=== PATIENT | male | born 1960 | race Caucasian/White ===

== ENCOUNTER 2024-02-05 05:06 | Inpatient (IN) | payer MEDICAID ==
[~2024-02-05] VITALS: Ht 172.7 cm; Wt 92.3 kg
[2024-02-05] VITALS (18 sets, daily range): BP systolic 89–135; BP diastolic 48–79; PULSE 66–96; RESP 14–18; TEMP 97.6–98.2; O2SAT 92–100
[2024-02-05] MEDS ORDERED: iohexol 300mg/ml 100ml inj. ONE (06:05)
[2024-02-05 06:40] LABS: BASOPHILS % (AUTO) 0.5 % (0-1); EOSINOPHILS # (AUTO) 0.1 X10'3 (0-0.9); EOSINOPHILS % (AUTO) 1.3 % (0-6); HEMOGLOBIN 15.7 g/dl (14.0-17.9); LYMPHOCYTES # (AUTO) 1.6 X10'3 (1.1-4.8); LYMPHOCYTES % (AUTO) 15.5 % (21-51); MEAN CORPUSCULAR HEMOGLOBIN 30.6 PG (27.0-31.0); MEAN CORPUSCULAR HGB CONC 33.5 g/dL (33.0-36.5); MEAN CORPUSCULAR VOLUME 91.4 FL (78-98); MEAN PLATELET VOLUME 8.3 FL (7.4-10.4); MONOCYTES # (AUTO) 0.6 X10'3 (0-0.9); MONOCYTES % (AUTO) 5.5 % (2-12); NEUTROPHILS # (AUTO) 8.2 X10'3 (1.8-7.7); NEUTROPHILS % (AUTO) 77.2 % (42-75); PLATELET COUNT 199 X10'3 (140-440); RED BLOOD COUNT 5.14 X10'6 (4.70-6.10); RED CELL DISTRIBUTION WIDTH 13.6 % (11.5-14.5); WHITE BLOOD COUNT 10.6 X10'3 (4.5-11.0)
[2024-02-05 06:44] LABS: ALANINE AMINOTRANSFERASE 21 U/L (12-78); ALBUMIN 4.1 G/DL (3.4-5.0); ALBUMIN/GLOBULIN RATIO 1.2 (1.1-1.5); ALKALINE PHOSPHATASE 57 IU/L (46-116); AMYLASE 38 U/L (25-115); ANION GAP 11 (8-16); ASPARTATE AMINO TRANSFERASE 21 U/L (10-37); BILIRUBIN,DIRECT 0.2 MG/DL (0-0.3); BILIRUBIN,TOTAL 0.9 MG/DL (0.1-1.0); BLOOD UREA NITROGEN 29 MG/DL (7-18); BUN/CREATININE RATIO 25.4 (10.0-20.0); CALCIUM 9.4 MG/DL (8.5-10.1); CHLORIDE 105 MMOL/L (99-107); CREATININE 1.14 MG/DL (0.60-1.10); GLUCOSE 157 MG/DL (70-104); LIPASE 38 U/L (16-77); SODIUM 144 MMOL/L (135-145); TOTAL CARBON DIOXIDE 27.7 MMOL/L (24-32); TOTAL PROTEIN 7.5 G/DL (6.4-8.2); eCRCL 63 ML/MIN; eGFR 64 ML/MIN
[2024-02-05] MEDS: normal saline 1000ml 1,000 ML IV ONE (07:23)
--- NOTE | 2024-02-05 07:24 | NUR ---
CALLED DR. RIVERA PER DR. TATUM
[2024-02-05] MEDS: ondansetron/PF 4mg/2ml inj IV ONE (07:44)
[2024-02-05] MEDS: ketorolac trometh 30MG/ML vial 30 MG/ML VIAL IV ONE (07:50)
[2024-02-05] MEDS ORDERED: magnesium sulf-water 4G/100mL 100 ML IV PRN (08:10)
[2024-02-05] MEDS ORDERED: acetaminophen 325mg tablet PO PRN (08:10)
[2024-02-05] MEDS ORDERED: magnesium Cl slow-release 64mg tablet PO PRN (08:10)
[2024-02-05] MEDS ORDERED: mag hydrox/Alum hydrox/simeth 30ml oral suspension PO PRN (08:10)
[2024-02-05] MEDS ORDERED: potassium Cl 20 mEq SR tablet PO PRN ×2 (08:10)
[2024-02-05] MEDS ORDERED: magnesium hydroxide 30ml (MOM) UD suspension PO PRN (08:10)
[2024-02-05] MEDS ORDERED: HYDROmorphone/PF 0.2 MG/ML SYRINGE IV PRN (08:10)
[2024-02-05] MEDS ORDERED: magnesium sulf-water 2g/50mL 50 ML IV PRN (08:10)
[2024-02-05] MEDS ORDERED: potassium Cl 40MEQ/1/2NS 520ml 520 ML IV PRN (08:10)
[2024-02-05] MEDS ORDERED: ondansetron/PF 4mg/2ml inj IV PRN ×2 (08:10→12:30)
[2024-02-05] MEDS: CefTRIAXone/D5W-Rocephin 1gm 50 ML IV ONE (08:37)
[2024-02-05] MEDS: normal saline 1000ml 1,000 ML IV SCH (08:39)
[2024-02-05] MEDS: enalaprilat dihydrate 2.5mg/2ml vial IV ONE (09:12)
[2024-02-05] MEDS: metroNIDAZOLE-Flagyl 500mg/NS 100 ML IV ONE (09:19)
[2024-02-05] MEDS ORDERED: LOSA50TA64 PO (09:32)
[2024-02-05] MEDS ORDERED: TRAM50TA2 PO (09:32)
[2024-02-05] MEDS ORDERED: MICO14CR6 TOP (09:32)
[2024-02-05 10:09] LABS: BILIRUBIN,URINE NEGATIVE (Neg); CLARITY,URINE CLEAR (Clear); COLOR,URINE YELLOW (Yellow); GLUCOSE, URINE 250 mg/dl (Neg); KETONES,URINE NEGATIVE (Neg); LEUKOCYTE ESTERASE ,URINE NEGATIVE (Neg); NITRITES, URINE NEGATIVE (Neg); OCCULT BLOOD,URINE NEGATIVE (Neg); PROTEIN,URINE NEGATIVE (Neg); UROBILINOGEN,URINE 0.2 E.U/dL (0.2-1.0)
[2024-02-05 10:10] LABS: UA COLLECTION TYPE NON-SPECIFIED
[2024-02-05] MEDS ORDERED: fentaNYL/PF 50MCG/1 ML 2ML syringe ONE ×2 (11:47→12:11)
[2024-02-05] MEDS ORDERED: rocuronium 10mg/ml inj IV ONE (11:47)
[2024-02-05] MEDS ORDERED: midazolam 1 mg/ML 2ml injection ONE (11:47)
[2024-02-05] MEDS ORDERED: propofol inj 20 ML IV ONE (11:47)
[2024-02-05] MEDS ORDERED: ceFOXitin 1000 MG inj ONE ×2 (12:06)
[2024-02-05] MEDS ORDERED: dexamethasone sod phosphate 4mg/ml inj. ONE (12:08)
[2024-02-05] MEDS: BUPIVAcaine 2.5mg/ml inj 50ml vial (contains preservative) ONE ×2 (12:13→13:43)
[2024-02-05] MEDS ORDERED: morphine 4 MG/ML inj SYRINge IV PRN ×2 (12:30→13:45)
[2024-02-05] MEDS ORDERED: morphine 2 MG/ML inj. syringe IV PRN (12:30)
[2024-02-05] MEDS ORDERED: ringers solution, lacted 1,000 ML IV SCH (12:30)
[2024-02-05] MEDS ORDERED: proCHLORperazine 10 MG/2 ml inj IV PRN (12:30)
[2024-02-05] MEDS: BUPIVAcaine 2.5mg/ml inj 50ml vial (contains preservative) SQ ONE (12:30)
[2024-02-05] MEDS ORDERED: meperidine/PF 25mg/ml syringe IV PRN ×3 (12:30)
[2024-02-05] MEDS ORDERED: neostigmine methylsulfate 1 MG/ML 10ml vial ONE (12:45)
[2024-02-05] MEDS ORDERED: glycopyrrolate 0.2mg/ml inj ONE (12:45)
[2024-02-05] MEDS ORDERED: ondansetron/PF 4mg/2ml inj ONE (12:45)
--- NOTE | 2024-02-05 13:05 | NUR ---
Received from OR via BED, accompanied by Anesthesiologist CLAUDIA and report given by Anesthesiolgist. PT DROWSY, OXYGENATING WELL ON 6 LPM O2 VIA MASK, NO RESP DISTRESS NOTED. DENIES NAUSEA AND PAIN AT THIS TIME. 3 ABD TROCAR SITES WITH SLICK, COVERED WITH SMALL BANDAIDS. CDI. VSS, SCDS ON.
[2024-02-05] MEDS ORDERED: HYDROcodone/acetaminophen 10/325mg tab PO PRN (13:45)
[2024-02-05] MEDS ORDERED: HYDROcodone/acetaminophen 5mg/325mg tablet PO PRN (13:45)
--- NOTE | 2024-02-05 14:01 | NUR ---
Patient in room PACU 1. I have received report from CHRISTINA YAÑEZSUPERVISOR BLEACH PLANT and had the opportunity to ask questions and assume patient care.
--- NOTE | 2024-02-05 14:05 | NUR ---
Report called to receiving nurse. Transferred via BED Belongings WITH PT, 2 BAGS, CLOTHING, GLASSES, CELL PHONE. WALLET IS IN SAFE, PLASTIC TAG WITH CHART AND RECEIVING NURSE NOTIFIED. PT STATES NO PAIN AT TIME OF TRANSFER, ADVISED HIM TOP ASK FOR PRN PAIN MEDS IF NEEDED WHEN LOCAL WEARS OFF. TOLERATING PO FLUIDS WELL, NO NAUSEA. VOIDED PRIOR TO SURGERY, NO DESIRE TO GO IN PACU. TRANSFERRED TO 349B IN STABLE CONDITION. Special Issues communicated to receiving nurse.
[2024-02-05] MEDS ORDERED: sevoflurane 250ml liquid IH ONE (17:46)
--- NOTE | 2024-02-05 18:50 | NUR ---
Patient in room STIVEN 349. I have received report from OTILIO Go and had the opportunity to ask questions and assume patient care.
--- NOTE | 2024-02-05 18:56 | NUR ---
Problems reprioritized. Patient report given TO JYOTHI YAÑEZ, questions answered & plan of care reviewed with .
[2024-02-05] MEDS: K and/or MAG REPLACEMENT MC SCH (20:00)
[2024-02-05] MEDS: docusate sod 100mg capsule PO SCH (20:00)
[2024-02-05] MEDS: heparin, porcine 5000 units/ml vial SQ SCH (20:19)
--- NOTE | 2024-02-05 20:49 | NUR ---
BLADDER SCANNED FOR 460 ML. PT UNABLE TO VOID. STRAIGHT CATH FOR 325 ML CLEAR YELLOW URINE
[2024-02-06 05:22] LABS: BASOPHILS % (AUTO) 0.1 % (0-1); EOSINOPHILS % (AUTO) 0 % (0-6); HEMATOCRIT 41.9 % (42.0-52.0); HEMOGLOBIN 13.8 g/dl (14.0-17.9); LYMPHOCYTES # (AUTO) 1.4 X10'3 (1.1-4.8); LYMPHOCYTES % (AUTO) 11.5 % (21-51); MEAN CORPUSCULAR HEMOGLOBIN 30.2 PG (27.0-31.0); MEAN CORPUSCULAR VOLUME 91.4 FL (78-98); MONOCYTES # (AUTO) 0.8 X10'3 (0-0.9); MONOCYTES % (AUTO) 6.5 % (2-12); NEUTROPHILS # (AUTO) 9.8 X10'3 (1.8-7.7); NEUTROPHILS % (AUTO) 81.9 % (42-75); PLATELET COUNT 173 X10'3 (140-440); RED BLOOD COUNT 4.58 X10'6 (4.70-6.10); WHITE BLOOD COUNT 11.9 X10'3 (4.5-11.0)
[2024-02-06 05:26] LABS: ALANINE AMINOTRANSFERASE 87 U/L (12-78); ALBUMIN 3.4 G/DL (3.4-5.0); ALKALINE PHOSPHATASE 51 IU/L (46-116); ANION GAP 9 (8-16); ASPARTATE AMINO TRANSFERASE 84 U/L (10-37); BILIRUBIN,TOTAL 0.7 MG/DL (0.1-1.0); BLOOD UREA NITROGEN 20 MG/DL (7-18); BUN/CREATININE RATIO 18.9 (10.0-20.0); CALCIUM 8.3 MG/DL (8.5-10.1); CHLORIDE 105 MMOL/L (99-107); CREATININE 1.06 MG/DL (0.60-1.10); GLUCOSE 120 MG/DL (70-104); POTASSIUM 4.5 MMOL/L (3.5-5.1); SODIUM 141 MMOL/L (135-145); TOTAL CARBON DIOXIDE 26.6 MMOL/L (24-32); TOTAL PROTEIN 6.7 G/DL (6.4-8.2); eCRCL 67 ML/MIN; eGFR 70 ML/MIN
--- NOTE | 2024-02-06 06:36 | NUR ---
Problems reprioritized. Patient report given, questions answered & plan of care reviewed with [place].
[2024-02-06 07:17] VITALS: BP 135/65; PULSE 75; RESP 16; TEMP 98.1; O2SAT 100
[2024-02-06] MEDS: CefTRIAXone/D5W-Rocephin 1gm 50 ML IV ONE (08:38)
[2024-02-06] MEDS ORDERED: AMOX-580 PO (10:25)
[2024-02-06] MEDS ORDERED: ACET-1008 PO (10:28)
[2024-02-06] MEDS ORDERED: LACT1CAP26 PO (10:35)
--- NOTE | 2024-02-06 12:01 | NUR ---
REVIEWED AND AGREE WITH ERROL WHEELER'S ASSESSMENT
[2024-02-06] MEDS ORDERED: sevoflurane 250ml liquid IH ONE (18:34)
== END 2024-02-06 12:15 | disposition home or self-care (01) | DRG 263 ==
LOC: ER 05:06 → ED HOLD 08:13 → PACU 10:51 → SUR 3N 14:10
PROVIDERS: ADMIT Internal Medicine; ATTEND Internal Medicine
PROC: 0FT44ZZ Resection of Gallbladder, Percutaneous Endoscopic Approach (ICD-10-PCS; principal; 2024-02-05 11:46)
DX: K80.00 Calculus of gallbladder with acute cholecystitis without obstruction (principal); C76.0 Malignant neoplasm of head, face and neck; B35.6 Tinea cruris; I10 Essential (primary) hypertension; Z87.442 Personal history of urinary calculi; Z88.0 Allergy status to penicillin
CPT/HCPCS: 36415; 71045; 76700; 80048; 80053; 80076; 81003; 82150; 83690; 83735; 85025; 87081; 93005; 96361; 96374; 96375; 99285; A4215; A4615; A4618; A7000; C1758; G0378; J0131; J0694; J0696; J1100; J1644; J1885; J2250; J2405; J2704; J2710; J3010; J3490; J7030; J7120; Q9967